=== PATIENT | female | born 1940 | race Caucasian/White ===

== ENCOUNTER 2017-06-19 10:11 | Inpatient (IN) | payer OTHER, MEDICARE ==
[~2017-06-19] VITALS: Ht 162.6 cm; Wt 81.1 kg
[2017-06-19] VITALS (9 sets, daily range): BP systolic 144–196; BP diastolic 59–92; PULSE 64–70; RESP 16–17; TEMP 97.8–97.9; O2SAT 95–100
[2017-06-19] MEDS ORDERED: ASPI-516 PO (10:28)
[2017-06-19] MEDS ORDERED: MORPHINE SULFATE 4 MG/ML INJ IV PUSH ONE (10:30)
[2017-06-19] MEDS ORDERED: ONDANSETRON HCL 4 MG/2 ML VIAL IV PUSH ONE (10:30)
[2017-06-19 10:58] LABS: AUTOMATED NEUTROPHIL # 9.2 TH/MM3 (1.8-7.7); BASOPHIL # 0.1 TH/MM3 (0-0.2); BASOPHIL % 0.7 % (0.0-2.0); EOSINOPHIL # 0.2 TH/MM3 (0-0.4); HEMATOCRIT 38.4 % (35.0-46.0); HEMOGLOBIN 12.8 GM/DL (11.6-15.3); LYMPH % 13.9 % (9.0-44.0); LYMPHOCYTE # 1.6 TH/MM3 (1.0-4.8); MEAN CELL VOLUME 87.8 FL (80.0-100.0); MEAN CORPUSCULAR HEMOGLOBIN 29.2 PG (27.0-34.0); MEAN CORPUSCULAR HGB CONC 33.2 % (32.0-36.0); MEAN PLATELET VOLUME 9.5 FL (7.0-11.0); MONO % 5.3 % (0.0-8.0); MONOCYTE # 0.6 TH/MM3 (0-0.9); NEUT % 78.1 % (16.0-70.0); PLATELET COUNT 174 TH/MM3 (150-450); RED BLOOD COUNT 4.38 MIL/MM3 (4.00-5.30); RED CELL DISTRIBUTION WIDTH 13.2 % (11.6-17.2); WHITE BLOOD COUNT 11.8 TH/MM3 (4.0-11.0)
[2017-06-19] MEDS ORDERED: TETANUS/DIPHTHERIA TOXOID ADULT 0.5 ML VIAL IM ONE (11:00)
[2017-06-19 11:09] LABS: ALBUMIN 3.4 GM/DL (3.4-5.0); ALT (GPT) 79 U/L (10-53); AST (GOT) 119 U/L (15-37); BICARBONATE 26.2 MEQ/L (21.0-32.0); BLOOD UREA NITROGEN 20 MG/DL (7-18); CALCIUM 8.9 MG/DL (8.5-10.1); CHLORIDE 109 MEQ/L (98-107); CREATININE 0.82 MG/DL (0.50-1.00); GLOMERULAR FILTRATION RATE 67 ML/MIN (>89); GLUCOSE,RANDOM 136 MG/DL (74-106); SODIUM (NA) 142 MEQ/L (136-145)
[2017-06-19 11:12] LABS: ALKALINE PHOSPHATASE 60 U/L (45-117); TOTAL BILIRUBIN ADULT 0.5 MG/DL (0.2-1.0)
[2017-06-19] MEDS ORDERED: FOSA70TA PO (11:14)
[2017-06-19] MEDS ORDERED: LOVA20TA PO (11:14)
[2017-06-19] MEDS ORDERED: CARV6.25 PO (11:14)
[2017-06-19] MEDS ORDERED: COZA100T PO (11:14)
[2017-06-19] MEDS ORDERED: MONT10TA2 PO (11:14)
[2017-06-19] MEDS ORDERED: IOHEXOL 350 MG/ML 10 ML VIAL (for RAD DIAG) IVCONTRAST ONE (11:39)
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
[2017-06-19 12:12] LABS: INTERNATIONAL NORMALIZED RATIO 1.1 RATIO; PROTHROMBIN TIME - PATIENT 11.3 SEC (9.8-11.6)
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
--- NOTE | 2017-06-19 13:07 | PD ---
Physical Exam Date Seen by Provider: Jun 19, 2017 Time Seen by Provider: 13:04 Narrative LACERATION LOCATION: Left scalp LENGTH: 5 cm NUMBER OF STITCHES/SHWETHA: 13 shwetha REPAIR: The area of the laceration was prepped with Betadine and sterilely draped. The laceration was infiltrated with 1% lidocaine with epi. The wound was copiously irrigated and explored without evidence of foreign body, tendon injury or neurovascular injury. The wound was closed using shwetha. This was a 1 layer repair. A sterile dressing was applied. The patient was advised to keep the dressing clean and dry. Patient tolerated the procedure well. LACERATION LOCATION: Left ear LENGTH: 5 small lacerations NUMBER OF STITCHES/SHWETHA: 7 stitches REPAIR: The area of the laceration was prepped with Betadine and sterilely draped. The laceration was infiltrated with 1% lidocaine. The wound was copiously irrigated and explored without evidence of foreign body, tendon injury or neurovascular injury. The wound was closed using 6-0 Ethilon. This was a 1 layer repair. A sterile dressing was applied. The patient was advised to keep the dressing clean and dry. Patient tolerated the procedure well. LACERATION LOCATION: Left upper cheek LENGTH: 2 cm NUMBER OF STITCHES/SHWETHA: 3 stitches REPAIR: The area of the laceration was prepped with Betadine and sterilely draped. The laceration was infiltrated with 1% lidocaine with epi. The wound was copiously irrigated and explored without evidence of foreign body, tendon injury or neurovascular injury. The wound was closed using 6-0 Ethilon. This was a 1 layer repair. A sterile dressing was applied. The patient was advised to keep the dressing clean and dry. Patient tolerated the procedure well. LACERATION LOCATION: Left lower cheek LENGTH: 4 cm NUMBER OF STITCHES/SHWETHA: 10 stitches REPAIR: The area of the laceration was prepped with Betadine and sterilely draped. The laceration was infiltrated with 1% lidocaine with epi. The wound was copiously irrigated and explored without evidence of foreign body, tendon injury or neurovascular injury. The wound was closed using 6-0 Ethilon. This was a 1 layer repair. A sterile dressing was applied. The patient was advised to keep the dressing clean and dry. Patient tolerated the procedure well. Data Data Last Documented VS Vital Signs Date Time Temp Pulse Resp B/P (MAP) Pulse Ox O2 Delivery O2 Flow Rate FiO2 06/19/17 11:12 69 16 188/81 (116) 97 Room Air 06/19/17 10:[address] Brain W/O Iv Contrast(Rout) (06/19/17 10:27) Ct Thorax/ Chest W Iv Contrast (06/19/17 10:27) Ct Cerv Spine W/O Contrast (06/19/17 10:27) Ct Thor Spine W/O Contrast (06/19/17 10:27) Complete Blood Count With Diff (06/19/17 10:27) Comprehensive Metabolic Panel (06/19/17 10:27) Prothrombin Time / Inr (Pt) (06/19/17 10:27) Act Partial Throm Time (Ptt) (06/19/17 10:27) Iv Access Insert/Monitor (06/19/17 10:27) Ecg Monitoring (06/19/17 10:27) Oximetry (06/19/17 10:27) Morphine Inj (Morphine Inj) (06/19/17 10:30) Ondansetron Inj (Zofran Inj) (06/19/17 10:30) Tetanus/Diphtheria Tox Adult (Tetanus/Di (06/19/17 11:00) Electrocardiogram (06/19/17 10:20) Iohexol 350 Inj (Omnipaque 350 Inj) (06/19/17 11:39) Type And Screen (06/19/17 12:32) Admit Order (Ed Use Only) (06/19/17 12:33) Labs Laboratory Tests Test 06/19/17 10:30 06/19/17 11:20 White Blood Count 11.8 TH/MM3 Red Blood Count 4.38 MIL/MM3 Hemoglobin 12.8 GM/DL Hematocrit 38.4 % Mean Corpuscular Volume 87.8 FL Mean Corpuscular Hemoglobin 29.2 PG Mean Corpuscular Hemoglobin Concent 33.2 % Red Cell Distribution Width 13.2 % Platelet Count 174 TH/MM3 Mean Platelet Volume 9.5 FL Neutrophils (%) (Auto) 78.1 % Lymphocytes (%) (Auto) 13.9 % Monocytes (%) (Auto) 5.3 % Eosinophils (%) (Auto) 2.0 % Basophils (%) (Auto) 0.7 % Neutrophils # (Auto) 9.2 TH/MM3 Lymphocytes # (Auto) 1.6 TH/MM3 Monocytes # (Auto) 0.6 TH/MM3 Eosinophils # (Auto) 0.2 TH/MM3 Basophils # (Auto) 0.1 TH/MM3 CBC Comment DIFF FINAL Differential Comment Blood Urea Nitrogen 20 MG/DL Creatinine 0.82 MG/DL Random Glucose 136 MG/DL Total Protein 7.0 GM/DL Albumin 3.4 GM/DL Calcium Level 8.9 MG/DL Alkaline Phosphatase 60 U/L Aspartate Amino Transf (AST/SGOT) 119 U/L Alanine Aminotransferase (ALT/SGPT) 79 U/L Total Bilirubin 0.5 MG/DL Sodium Level 142 MEQ/L Potassium Level 4.1 MEQ/L Chloride Level 109 MEQ/L Carbon Dioxide Level 26.2 MEQ/L Anion Gap 7 MEQ/L Estimat Glomerular Filtration Rate 67 ML/MIN Prothrombin Time 11.3 SEC Prothromb Time International Ratio 1.1 RATIO Activated Partial Thromboplast Time 23.6 SEC MDM Supervised Visit with KAROL: Yes Diagnosis Primary Impression: Acute subdural and subarachnoid hemorrhages Additional Impressions: Right clavicle fracture Left-sided facial and temporal scalp lacerations Multiple left-sided rib fractures Multiple right-sided rib fractures. Small right sided pneumothorax T4 and T6 compression fracture Sarah Childers Jun 19, 2017 13:07
[2017-06-19] MEDS ORDERED: MISCELLANEOUS NURSING INFORMATION XX SCH ×2 (13:15→13:30)
[2017-06-19] MEDS ORDERED: BISACODYL 10 MG SUPP RECTAL PRN (13:15)
[2017-06-19] MEDS ORDERED: CHLORHEXIDINE GLUCONATE 2 % 1 PACK (2 CLOTHS) TOP PRN ×2 (13:15→13:30)
[2017-06-19] MEDS ORDERED: SENNOSIDES 8.6 MG TAB PO PRN (13:15)
[2017-06-19] MEDS ORDERED: SODIUM CHLORIDE 0.9% FLUSH 10 ML FLUSH IV FLUSH PRN ×3 (13:15→14:45)
[2017-06-19] MEDS ORDERED: LACTULOSE SYRUP 20 GM/30 ML CUP PO PRN (13:15)
[2017-06-19] MEDS ORDERED: ONDANSETRON HCL 4 MG/2 ML VIAL IV PUSH PRN (13:30)
[2017-06-19] MEDS ORDERED: ENALAPRILAT 1.25 MG/ML VIAL IV PUSH PRN (13:30)
[2017-06-19] MEDS ORDERED: MAGNESIUM HYDROXIDE SUSP 30 ML CUP PO PRN (13:30)
[2017-06-19] MEDS ORDERED: MORPHINE SULFATE 4 MG/ML INJ IV PUSH PRN (13:30)
[2017-06-19] MEDS: METHOCARBAMOL 500 MG TAB PO SCH ×2 (13:53→21:12)
[2017-06-19] MEDS ORDERED: SODIUM CHLOR 0.9% 1000 ML INJ 1,000 ML IV SCH (14:00)
[2017-06-19] MEDS ORDERED: PANTOPRAZOLE SODIUM 40 MG VIAL IVP SCH (14:00)
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
[2017-06-19] MEDS ORDERED: NALOXONE HCL 0.4 MG/ML AMP IV PUSH PRN (14:45)
[2017-06-19] MEDS ORDERED: oxyCODONE/ACETAMINOPHEN 5 MG/325 MG TAB PO PRN (14:45)
[2017-06-19] MEDS ORDERED: MORPHINE SULFATE 2 MG/ML SYRINGE IV PUSH PRN (14:45)
[2017-06-19] MEDS ORDERED: Post-op Orders (for Pharmacy) XX ONE (14:45)
[2017-06-19] MEDS: SODIUM CHLOR 0.9% 1000 ML INJ 1,000 ML IV SCH (15:00)
[2017-06-19] MEDS ORDERED: ACETAMINOPHEN 1000 MG/100 ML 100 ML IV SCH (15:00)
[2017-06-19] MEDS: MAGNESIUM HYDROXIDE SUSP 30 ML CUP PO SCH (16:40)
[2017-06-19] MEDS: PANTOPRAZOLE SOD 40 MG DELAYED RELEASE TAB PO SCH ×2 (16:40→16:53)
[2017-06-19] MEDS: levETIRAcetam INJ 500 MG in SODIUM CHLORIDE 0.9% INJ 100 ML IV SCH ×2 (16:40→21:12)
[2017-06-19] MEDS: ACETAMINOPHEN 1000 MG/100 ML 100 ML IV SCH ×2 (16:43→21:12)
[2017-06-19] MEDS: MORPHINE SULFATE 2 MG/ML SYRINGE IV PUSH PRN (16:45)
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
[2017-06-19] MEDS: LIDOCAINE HCL 5% PATCH T-DERMAL SCH (16:53)
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
--- NOTE | 2017-06-19 19:33 | EKG ---
Date Performed: 06/19/2017 Time Performed: 10:30:55 PTAGE: 77 years EKG: Sinus rhythm POSSIBLE RIGHT VENTRICULAR CONDUCTION DELAY BORDERLINE ECG NO PREVIOUS TRACING DOCTOR: Will Rosenberg Interpretating Date/Time 06/19/2017 19:30:22
[2017-06-19] MEDS: BACITRACIN TOP OINT 15 GM TUBE TOP SCH (21:00)
[2017-06-19] MEDS: CARVEDILOL 6.25 MG TAB PO SCH (21:12)
[2017-06-19] MEDS: PRAVASTATIN SOD 20 MG TAB PO SCH (21:12)
[2017-06-19] MEDS: DOCUSATE SODIUM 50 MG/SENNA 8.6 MG TAB PO SCH (21:12)
[2017-06-19] MEDS: SODIUM CHLORIDE 0.9% FLUSH 10 ML FLUSH IV FLUSH SCH (21:12)
[2017-06-20] VITALS (14 sets, daily range): BP systolic 101–153; BP diastolic 46–104; PULSE 58–75; RESP 11–18; TEMP 97.2–98.6; O2SAT 92–100
[2017-06-20] MEDS: MAGNESIUM HYDROXIDE SUSP 30 ML CUP PO SCH ×2 (02:37→14:27)
[2017-06-20] MEDS ORDERED: CHLORHEXIDINE GLUCONATE 2 % 1 PACK (2 CLOTHS) TOP SCH (04:00)
[2017-06-20] MEDS: CHLORHEXIDINE GLUCONATE 2 % 1 PACK (2 CLOTHS) TOP SCH (04:00)
[2017-06-20] MEDS: ACETAMINOPHEN 1000 MG/100 ML 100 ML IV SCH ×2 (04:15→10:00)
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
[2017-06-20] MEDS: METHOCARBAMOL 500 MG TAB PO SCH ×3 (05:33→21:13)
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
[2017-06-20 07:23] LABS: AUTOMATED NEUTROPHIL # 7.2 TH/MM3 (1.8-7.7); BASOPHIL # 0.1 TH/MM3 (0-0.2); BASOPHIL % 0.5 % (0.0-2.0); EOSINOPHIL % 0.1 % (0.0-4.0); HEMATOCRIT 31.5 % (35.0-46.0); HEMOGLOBIN 10.5 GM/DL (11.6-15.3); LYMPH % 15.5 % (9.0-44.0); LYMPHOCYTE # 1.6 TH/MM3 (1.0-4.8); MEAN CELL VOLUME 89.6 FL (80.0-100.0); MEAN CORPUSCULAR HEMOGLOBIN 29.9 PG (27.0-34.0); MEAN CORPUSCULAR HGB CONC 33.4 % (32.0-36.0); MEAN PLATELET VOLUME 9.2 FL (7.0-11.0); MONO % 11.3 % (0.0-8.0); MONOCYTE # 1.1 TH/MM3 (0-0.9); NEUT % 72.6 % (16.0-70.0); PLATELET COUNT 131 TH/MM3 (150-450); RED BLOOD COUNT 3.51 MIL/MM3 (4.00-5.30); RED CELL DISTRIBUTION WIDTH 13.3 % (11.6-17.2)
[2017-06-20 07:52] LABS: ALKALINE PHOSPHATASE 55 U/L (45-117); ALT (GPT) 82 U/L (10-53); AST (GOT) 118 U/L (15-37); BICARBONATE 25.4 MEQ/L (21.0-32.0); BLOOD UREA NITROGEN 33 MG/DL (7-18); CALCIUM 8.2 MG/DL (8.5-10.1); CHLORIDE 108 MEQ/L (98-107); CREATININE 1.16 MG/DL (0.50-1.00); GLOMERULAR FILTRATION RATE 45 ML/MIN (>89); GLUCOSE,RANDOM 137 MG/DL (74-106); SODIUM (NA) 142 MEQ/L (136-145); TOTAL BILIRUBIN ADULT 0.5 MG/DL (0.2-1.0); TOTAL PROTEIN 6.2 GM/DL (6.4-8.2)
[2017-06-20] MEDS: CARVEDILOL 6.25 MG TAB PO SCH ×2 (08:13→21:13)
[2017-06-20] MEDS: LOSARTAN 50 MG TAB PO SCH (08:13)
[2017-06-20] MEDS: levETIRAcetam INJ 500 MG in SODIUM CHLORIDE 0.9% INJ 100 ML IV SCH ×2 (08:16→21:13)
[2017-06-20] MEDS: DOCUSATE SODIUM 50 MG/SENNA 8.6 MG TAB PO SCH ×2 (08:16→21:13)
[2017-06-20] MEDS: SODIUM CHLORIDE 0.9% FLUSH 10 ML FLUSH IV FLUSH SCH ×2 (08:16→21:14)
[2017-06-20] MEDS: REMOVE OLD LIDOCAINE PATCH T-DERMAL SCH (08:17)
[2017-06-20] MEDS: LIDOCAINE HCL 5% PATCH T-DERMAL SCH (08:17)
[2017-06-20] MEDS: ONDANSETRON HCL 4 MG/2 ML VIAL IV PUSH PRN ×2 (09:36→20:02)
[2017-06-20] MEDS: BACITRACIN TOP OINT 15 GM TUBE TOP SCH ×2 (10:30→21:00)
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
[2017-06-20] MEDS: SODIUM CHLOR 0.9% 1000 ML INJ 1,000 ML IV SCH ×2 (12:00→23:07)
--- NOTE | 2017-06-20 12:00 | RADRPT ---
EXAM DATE/TIME: 06/20/2017 11:35 [facility] COMPARISON: CT BRAIN W/O CONTRAST, June 19, 2017, 11:21. INDICATIONS : Abnormal prior CT brain. Evaluate status of subdural hemorrhage. RADIATION DOSE: 33.97 CTDIvol (mGy) MEDICAL HISTORY : Hypertension. SURGICAL HISTORY : Hysterectomy. Cholecystectomy. ENCOUNTER: Subsequent ACUITY: 1 day PAIN SCALE: 5/10 LOCATION: Bilateral head TECHNIQUE: Multiple contiguous axial images were obtained of the head. Using automated exposure control and adj ustment of the mA and/or kV according to patient size, radiation dose was kept as low as reasonably a chievable to obtain optimal diagnostic quality images. DICOM format image data is available electro nically for review and comparison. FINDINGS: The subdural blood persists becoming less dense. This blood is layering posteriorly on the right and measures 8 mm. Cortical parenchymal contusions are again seen over the right hemisphere. Minimal s ubarachnoid blood persists. Left hemisphere is unremarkable. The posterior fossa appears normal. CONCLUSION: Involving subdural, subarachnoid and parenchymal blood without significant mass effec t. MRI could be used to exclude LAMONTE. Aydin Doe MD FACR on June 20, 2017 at 11:57 Board Certified Radiologist. This report was verified electronically.
--- NOTE | 2017-06-20 12:17 | RADRPT ---
EXAM DATE/TIME: 06/20/2017 11:42 [facility] COMPARISON: No previous studies available for comparison. INDICATIONS : Fracture. MEDICAL HISTORY : Hypertension. SURGICAL HISTORY : CABG Hysterectomy. Appendectomy. Cholecystectomy. ENCOUNTER: Initial ACUITY: 1 day PAIN SCORE: 5/10 LOCATION: Paraspinal TECHNIQUE: Multiplanar multisequence MRI of the thoracic spine was performed. FINDINGS: VERTEBRA: Normal vertebral body height. Marrow signal alteration in T4 and T6 consistent with acute compressio n. Small right-sided pleural effusion. ALIGNMENT: Normal. CORD: Normal position and configuration. The marrow signal in T4 and T6 is abnormal consistent with the bland subacute compression fracture. . These are causing very minimal impingement on the anterior thecal space, less impressive than seen by CT. There is mild interspace ridging at T7-T8 and T8-T9 causing minimal impingement on anterior thecal sp raheem. There is no cord compression. There is the small right pleural effusion. CONCLUSION: Fractures of T4 and T6 without significant cord impingement. Mild degenerative changes lower thoracic spine Trace pleural effusion on the right. Aydin Doe MD FACR on June 20, 2017 at 12:11 Board Certified Radiologist. This report was verified electronically.
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
[2017-06-20] MEDS: MORPHINE SULFATE 2 MG/ML SYRINGE IV PUSH PRN ×3 (15:28→22:51)
--- NOTE | 2017-06-20 16:48 | EKG ---
Date Performed: 06/19/2017 Time Performed: 15:21:54 PTAGE: 77 years EKG: Sinus bradycardia Septal ST changes are nonspecific Since the previous tracing, no signific ant change noted Borderline ECG PREVIOUS TRACING : 06/19/2017 10.30 DOCTOR: Georgiana Khan Interpretating Date/Time 06/20/2017 16:46:58
[2017-06-20] MEDS ORDERED: fentaNYL 50 MCG/HR PATCH T-DERMAL SCH (19:00)
[2017-06-20] MEDS ORDERED: REMOVE OLD PATCH T-DERMAL SCH (19:00)
[2017-06-20] MEDS: PRAVASTATIN SOD 20 MG TAB PO SCH (21:13)
[2017-06-20] MEDS: oxyCODONE/ACETAMINOPHEN 5 MG/325 MG TAB PO PRN (21:14)
[2017-06-21] VITALS (10 sets, daily range): BP systolic 111–164; BP diastolic 58–70; PULSE 63–90; RESP 15–21; TEMP 97.4–98.8; O2SAT 94–100
[2017-06-21] MEDS: MORPHINE SULFATE 4 MG/ML INJ IV PUSH PRN ×4 (00:56→17:59)
[2017-06-21] MEDS: MAGNESIUM HYDROXIDE SUSP 30 ML CUP PO SCH ×2 (02:13→14:32)
[2017-06-21] MEDS: CHLORHEXIDINE GLUCONATE 2 % 1 PACK (2 CLOTHS) TOP SCH (04:00)
[2017-06-21] MEDS: oxyCODONE/ACETAMINOPHEN 5 MG/325 MG TAB PO PRN (04:06)
[2017-06-21 04:37] LABS: AUTOMATED NEUTROPHIL # 6.8 TH/MM3 (1.8-7.7); BASOPHIL # 0.1 TH/MM3 (0-0.2); BASOPHIL % 0.5 % (0.0-2.0); EOSINOPHIL # 0.1 TH/MM3 (0-0.4); EOSINOPHIL % 0.9 % (0.0-4.0); HEMATOCRIT 27.6 % (35.0-46.0); HEMOGLOBIN 9.4 GM/DL (11.6-15.3); LYMPH % 17.7 % (9.0-44.0); LYMPHOCYTE # 1.7 TH/MM3 (1.0-4.8); MEAN CELL VOLUME 89.6 FL (80.0-100.0); MEAN CORPUSCULAR HEMOGLOBIN 30.4 PG (27.0-34.0); MEAN CORPUSCULAR HGB CONC 33.9 % (32.0-36.0); MEAN PLATELET VOLUME 9.2 FL (7.0-11.0); MONO % 9.4 % (0.0-8.0); MONOCYTE # 0.9 TH/MM3 (0-0.9); NEUT % 71.5 % (16.0-70.0); PLATELET COUNT 112 TH/MM3 (150-450); RED BLOOD COUNT 3.08 MIL/MM3 (4.00-5.30); RED CELL DISTRIBUTION WIDTH 13.5 % (11.6-17.2); WHITE BLOOD COUNT 9.6 TH/MM3 (4.0-11.0)
[2017-06-21 04:59] LABS: ALBUMIN 2.9 GM/DL (3.4-5.0); AST (GOT) 99 U/L (15-37); BICARBONATE 27.3 MEQ/L (21.0-32.0); BLOOD UREA NITROGEN 34 MG/DL (7-18); CALCIUM 7.6 MG/DL (8.5-10.1); CHLORIDE 112 MEQ/L (98-107); CREATININE 0.93 MG/DL (0.50-1.00); GLOMERULAR FILTRATION RATE 58 ML/MIN (>89); GLUCOSE,RANDOM 134 MG/DL (74-106); SODIUM (NA) 143 MEQ/L (136-145)
[2017-06-21 05:00] LABS: ALT (GPT) 80 U/L (10-53)
[2017-06-21 05:03] LABS: ALKALINE PHOSPHATASE 56 U/L (45-117); TOTAL BILIRUBIN ADULT 0.4 MG/DL (0.2-1.0); TOTAL PROTEIN 6.1 GM/DL (6.4-8.2)
[2017-06-21] MEDS: METHOCARBAMOL 500 MG TAB PO SCH ×3 (05:12→22:00)
--- NOTE | 2017-06-21 05:21 | RADRPT ---
EXAM DATE/TIME: 06/21/2017 04:43 [facility] COMPARISON: CHEST SINGLE AP, June 20, 2017, 3:53. INDICATIONS : Shortness of breath. MEDICAL HISTORY : Hypertension. SURGICAL HISTORY : CABG Hysterectomy. Appendectomy. Cholecystectomy ENCOUNTER: Subsequent ACUITY: 3 days PAIN SCORE: Non-responsive. LOCATION: Bilateral chest FINDINGS: The cardiac silhouette is enlarged in transverse diameter. Median sternotomy wires are present. The l ungs are hypoinflated. There is prominence of the central pulmonary vasculature with indistinct vascu lar margins compatible with vascular congestion but no evidence of overt failure. CONCLUSION: 1. Cardiomegaly and findings of vascular congestion without overt failure. This is new when compared with the prior exam. Rich Mclaughlin MD on June 21, 2017 at 5:19 Board Certified Radiologist. This report was verified electronically.
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
[2017-06-21] MEDS: CARVEDILOL 6.25 MG TAB PO SCH ×2 (09:56→21:00)
[2017-06-21] MEDS: DOCUSATE SODIUM 50 MG/SENNA 8.6 MG TAB PO SCH ×2 (09:56→21:00)
[2017-06-21] MEDS: LOSARTAN 50 MG TAB PO SCH (09:56)
[2017-06-21] MEDS: levETIRAcetam INJ 500 MG in SODIUM CHLORIDE 0.9% INJ 100 ML IV SCH ×2 (09:56→23:01)
[2017-06-21] MEDS: BACITRACIN TOP OINT 15 GM TUBE TOP SCH ×2 (09:57→23:02)
[2017-06-21] MEDS: REMOVE OLD LIDOCAINE PATCH T-DERMAL SCH (09:57)
[2017-06-21] MEDS: LIDOCAINE HCL 5% PATCH T-DERMAL SCH (09:57)
[2017-06-21] MEDS: SODIUM CHLOR 0.9% 1000 ML INJ 1,000 ML IV SCH (09:58)
[2017-06-21] MEDS: SODIUM CHLORIDE 0.9% FLUSH 10 ML FLUSH IV FLUSH SCH ×2 (09:58→23:01)
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
[2017-06-21] MEDS: PANTOPRAZOLE SOD 40 MG DELAYED RELEASE TAB PO SCH (14:32)
[2017-06-21] MEDS: PRAVASTATIN SOD 20 MG TAB PO SCH (21:00)
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
--- NOTE | 2017-06-21 21:36 | RADRPT ---
EXAM DATE/TIME: 06/21/2017 20:53 [facility] COMPARISON: CHEST SINGLE AP, June 21, 2017, 4:43. INDICATIONS : Short of Breath MEDICAL HISTORY : Hypertension. SURGICAL HISTORY : CABG Hysterectomy. Appendectomy. Cholecystectomy ENCOUNTER: Subsequent ACUITY: 3 days PAIN SCORE: Non-responsive. LOCATION: chest FINDINGS: The patient is status post sternotomy. Heart size is normal. There is increased density at the lung b ases bilaterally being more prominent on the right. CONCLUSION: Bibasilar atelectasis, consolidation and/or effusion being more prominent on the right. Russell Jones MD on June 21, 2017 at 21:33 Board Certified Radiologist. This report was verified electronically.
[2017-06-22] VITALS (12 sets, daily range): BP systolic 107–201; BP diastolic 52–81; PULSE 65–83; RESP 12–16; TEMP 97.5–98.8; O2SAT 95–100
[2017-06-22] MEDS: SODIUM CHLOR 0.9% 1000 ML INJ 1,000 ML IV SCH ×3 (00:45→23:29)
[2017-06-22] MEDS: MAGNESIUM HYDROXIDE SUSP 30 ML CUP PO SCH ×2 (03:00→15:26)
[2017-06-22] MEDS: CHLORHEXIDINE GLUCONATE 2 % 1 PACK (2 CLOTHS) TOP SCH (04:00)
--- NOTE | 2017-06-22 05:43 | RADRPT ---
EXAM DATE/TIME: 06/22/2017 04:56 [facility] COMPARISON: CHEST SINGLE AP, June 21, 2017, 20:53. INDICATIONS : Short of breath. MEDICAL HISTORY : Hypertension. SURGICAL HISTORY : CABG Hysterectomy. Appendectomy. Cholecystectomy ENCOUNTER: Subsequent ACUITY: 4 - 6 days PAIN SCORE: 0/10 LOCATION: Bilateral chest FINDINGS: Mild consolidation and small effusion again seen on the right. No pneumothorax demonstrated. Heart si ze stable, within normal limits. Patient has had previous median sternotomy. CONCLUSION: No significant change basilar consolidation and small effusion on the right. Russell Johnson MD on June 22, 2017 at 5:41 Board Certified Radiologist. This report was verified electronically.
[2017-06-22] MEDS: METHOCARBAMOL 500 MG TAB PO SCH ×3 (06:00→23:32)
[2017-06-22] MEDS: ENALAPRILAT 1.25 MG/ML VIAL IV PUSH PRN ×2 (06:20→15:26)
[2017-06-22 07:36] LABS: BASOPHIL % 0.5 % (0.0-2.0); EOSINOPHIL % 0.3 % (0.0-4.0); HEMOGLOBIN 8.8 GM/DL (11.6-15.3); LYMPH % 11.4 % (9.0-44.0); LYMPHOCYTE # 1.1 TH/MM3 (1.0-4.8); MEAN CELL VOLUME 89.9 FL (80.0-100.0); MEAN CORPUSCULAR HEMOGLOBIN 30.5 PG (27.0-34.0); MEAN CORPUSCULAR HGB CONC 33.9 % (32.0-36.0); MEAN PLATELET VOLUME 9.1 FL (7.0-11.0); MONO % 7.3 % (0.0-8.0); MONOCYTE # 0.7 TH/MM3 (0-0.9); NEUT % 80.5 % (16.0-70.0); PLATELET COUNT 124 TH/MM3 (150-450); RED BLOOD COUNT 2.89 MIL/MM3 (4.00-5.30); RED CELL DISTRIBUTION WIDTH 13.7 % (11.6-17.2); WHITE BLOOD COUNT 9.9 TH/MM3 (4.0-11.0)
[2017-06-22 07:55] LABS: ALBUMIN 2.7 GM/DL (3.4-5.0); AST (GOT) 69 U/L (15-37); BLOOD UREA NITROGEN 32 MG/DL (7-18); CALCIUM 7.6 MG/DL (8.5-10.1); CHLORIDE 116 MEQ/L (98-107); CREATININE 0.69 MG/DL (0.50-1.00); GLOMERULAR FILTRATION RATE 82 ML/MIN (>89); GLUCOSE,RANDOM 104 MG/DL (74-106); SODIUM (NA) 145 MEQ/L (136-145)
[2017-06-22 07:56] LABS: ALT (GPT) 68 U/L (10-53)
[2017-06-22 07:58] LABS: ALKALINE PHOSPHATASE 71 U/L (45-117); TOTAL BILIRUBIN ADULT 0.4 MG/DL (0.2-1.0); TOTAL PROTEIN 6.2 GM/DL (6.4-8.2)
[2017-06-22] MEDS: BACITRACIN TOP OINT 15 GM TUBE TOP SCH ×2 (09:00→23:43)
[2017-06-22] MEDS: REMOVE OLD LIDOCAINE PATCH T-DERMAL SCH (09:00)
[2017-06-22] MEDS: SODIUM CHLORIDE 0.9% FLUSH 10 ML FLUSH IV FLUSH SCH ×2 (09:00→21:00)
[2017-06-22] MEDS: DOCUSATE SODIUM 50 MG/SENNA 8.6 MG TAB PO SCH ×2 (10:20→23:32)
[2017-06-22] MEDS: LOSARTAN 50 MG TAB PO SCH (10:20)
[2017-06-22] MEDS: oxyCODONE/ACETAMINOPHEN 5 MG/325 MG TAB PO PRN ×2 (10:20→15:28)
[2017-06-22] MEDS: CARVEDILOL 6.25 MG TAB PO SCH ×2 (10:20→23:32)
[2017-06-22] MEDS: LIDOCAINE HCL 5% PATCH T-DERMAL SCH (10:21)
[2017-06-22] MEDS: levETIRAcetam INJ 500 MG in SODIUM CHLORIDE 0.9% INJ 100 ML IV SCH ×2 (10:21→23:33)
[2017-06-22] MEDS: PANTOPRAZOLE SOD 40 MG DELAYED RELEASE TAB PO SCH (15:26)
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
[2017-06-22] MEDS ORDERED: cloNIDine HCL 0.2 MG TAB PO ONE (16:30)
[2017-06-22] MEDS: PRAVASTATIN SOD 20 MG TAB PO SCH (23:32)
[2017-06-23] VITALS (7 sets, daily range): BP systolic 112–213; BP diastolic 53–96; PULSE 58–75; RESP 16–21; TEMP 96.4–99.1; O2SAT 100
[2017-06-23] MEDS: MAGNESIUM HYDROXIDE SUSP 30 ML CUP PO SCH ×2 (02:56→14:19)
[2017-06-23] MEDS: oxyCODONE/ACETAMINOPHEN 5 MG/325 MG TAB PO PRN ×2 (02:57→08:59)
[2017-06-23] MEDS: CHLORHEXIDINE GLUCONATE 2 % 1 PACK (2 CLOTHS) TOP SCH (04:00)
[2017-06-23 05:17] LABS: AUTOMATED NEUTROPHIL # 6.1 TH/MM3 (1.8-7.7); BASOPHIL % 0.4 % (0.0-2.0); EOSINOPHIL % 0.6 % (0.0-4.0); HEMATOCRIT 24.1 % (35.0-46.0); HEMOGLOBIN 8.1 GM/DL (11.6-15.3); LYMPH % 13.5 % (9.0-44.0); LYMPHOCYTE # 1.1 TH/MM3 (1.0-4.8); MEAN CELL VOLUME 90.1 FL (80.0-100.0); MEAN CORPUSCULAR HEMOGLOBIN 30.2 PG (27.0-34.0); MEAN CORPUSCULAR HGB CONC 33.5 % (32.0-36.0); MONO % 7.6 % (0.0-8.0); MONOCYTE # 0.6 TH/MM3 (0-0.9); NEUT % 77.9 % (16.0-70.0); PLATELET COUNT 128 TH/MM3 (150-450); RED BLOOD COUNT 2.68 MIL/MM3 (4.00-5.30); RED CELL DISTRIBUTION WIDTH 13.2 % (11.6-17.2); WHITE BLOOD COUNT 7.8 TH/MM3 (4.0-11.0)
--- NOTE | 2017-06-23 05:29 | RADRPT ---
EXAM DATE/TIME: 06/23/2017 03:32 [facility] COMPARISON: CHEST SINGLE AP, June 22, 2017, 4:56. INDICATIONS : Short of breath. MEDICAL HISTORY : Hypertension. SURGICAL HISTORY : CABG Hysterectomy. Appendectomy. Cholecystectomy ENCOUNTER: Subsequent ACUITY: 4 - 6 days PAIN SCORE: Non-responsive. LOCATION: Bilateral chest FINDINGS: Bibasilar consolidation and small effusions again noted, slightly worse in the interim. No pneumothor ax. Heart size stable, upper limits of normal. Patient has had previous median sternotomy. CONCLUSION: Modest worsening bibasilar consolidation and small effusions. Russell Johnson MD on June 23, 2017 at 5:27 Board Certified Radiologist. This report was verified electronically.
[2017-06-23 05:41] LABS: ALBUMIN 2.3 GM/DL (3.4-5.0); BICARBONATE 23.5 MEQ/L (21.0-32.0); CALCIUM 7.3 MG/DL (8.5-10.1); CALCIUM-PROTEIN CORRECTED 8.1 MG/DL (8.5-10.1); CREATININE 0.56 MG/DL (0.50-1.00); TOTAL BILIRUBIN ADULT 0.5 MG/DL (0.2-1.0); TOTAL PROTEIN 5.7 GM/DL (6.4-8.2)
[2017-06-23] MEDS: METHOCARBAMOL 500 MG TAB PO SCH ×3 (06:50→22:34)
[2017-06-23] MEDS: cloNIDine HCL 0.1 MG TAB PO PRN ×2 (08:50→19:29)
[2017-06-23] MEDS: CARVEDILOL 6.25 MG TAB PO SCH ×2 (08:50→19:29)
[2017-06-23] MEDS: DOCUSATE SODIUM 50 MG/SENNA 8.6 MG TAB PO SCH ×2 (08:50→19:29)
[2017-06-23] MEDS: LOSARTAN 50 MG TAB PO SCH (08:50)
[2017-06-23] MEDS: LIDOCAINE HCL 5% PATCH T-DERMAL SCH (08:51)
[2017-06-23] MEDS: levETIRAcetam INJ 500 MG in SODIUM CHLORIDE 0.9% INJ 100 ML IV SCH ×2 (08:51→19:29)
[2017-06-23] MEDS: SODIUM CHLORIDE 0.9% FLUSH 10 ML FLUSH IV FLUSH SCH ×2 (09:00→19:29)
[2017-06-23] MEDS: REMOVE OLD LIDOCAINE PATCH T-DERMAL SCH (09:00)
[2017-06-23] MEDS: LACTULOSE SYRUP 20 GM/30 ML CUP PO SCH (09:00)
--- NOTE | 2017-06-23 11:00 | RADRPT ---
EXAM DATE/TIME: 06/23/2017 10:30 [facility] COMPARISON: CHEST SINGLE AP, June 23, 2017, 3:32. INDICATIONS : Short of breath. MEDICAL HISTORY : Hypertension. SURGICAL HISTORY : CABG. Hysterectomy. Appendectomy. Cholecystectomy ENCOUNTER: Subsequent ACUITY: 4 - 6 days PAIN SCORE: Non-responsive. LOCATION: Bilateral chest FINDINGS: A single view of the chest demonstrates cardiomegaly with bibasilar densities and small pleural effus ions, greater on the right. Increase in pulmonary vascularity. Osseous structures are intact. CONCLUSION: Cardiomegaly with bilateral pleural effusions and bibasilar densities, likely atelectasis. Santiago Kiser MD on June 23, 2017 at 10:52 Board Certified Radiologist. This report was verified electronically.
[2017-06-23] MEDS: ACETAMINOPHEN 1000 MG/100 ML 100 ML IV SCH ×3 (12:28→23:05)
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
[2017-06-23] MEDS: LACTATED RINGER'S 1000 ML INJ 1,000 ML IV SCH (14:05)
[2017-06-23] MEDS: PANTOPRAZOLE SOD 40 MG DELAYED RELEASE TAB PO SCH (14:17)
[2017-06-23] MEDS: ENALAPRILAT 2.5 MG/2 ML VIAL IV PUSH PRN ×2 (14:18→23:05)
[2017-06-23] MEDS: BACITRACIN TOP OINT 15 GM TUBE TOP SCH ×2 (17:04→19:29)
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
[2017-06-23] MEDS: PRAVASTATIN SOD 20 MG TAB PO SCH (19:29)
[2017-06-24] VITALS (11 sets, daily range): BP systolic 137–165; BP diastolic 63–99; PULSE 56–74; RESP 12–20; TEMP 97.2–98.8; O2SAT 90–100
[2017-06-24] MEDS: MORPHINE SULFATE 2 MG/ML SYRINGE IV PRN ×3 (02:58→15:10)
[2017-06-24] MEDS: MAGNESIUM HYDROXIDE SUSP 30 ML CUP PO SCH ×2 (03:00→15:00)
[2017-06-24] MEDS: CHLORHEXIDINE GLUCONATE 2 % 1 PACK (2 CLOTHS) TOP SCH (04:00)
[2017-06-24 05:23] LABS: AUTOMATED NEUTROPHIL # 4.8 TH/MM3 (1.8-7.7); BASOPHIL # 0.1 TH/MM3 (0-0.2); BASOPHIL % 0.8 % (0.0-2.0); EOSINOPHIL # 0.1 TH/MM3 (0-0.4); EOSINOPHIL % 1.3 % (0.0-4.0); HEMATOCRIT 25.6 % (35.0-46.0); HEMOGLOBIN 8.7 GM/DL (11.6-15.3); LYMPH % 18.9 % (9.0-44.0); LYMPHOCYTE # 1.3 TH/MM3 (1.0-4.8); MEAN CORPUSCULAR HEMOGLOBIN 30.3 PG (27.0-34.0); MEAN CORPUSCULAR HGB CONC 34.1 % (32.0-36.0); MEAN PLATELET VOLUME 8.9 FL (7.0-11.0); MONO % 8.4 % (0.0-8.0); MONOCYTE # 0.6 TH/MM3 (0-0.9); NEUT % 70.6 % (16.0-70.0); PLATELET COUNT 158 TH/MM3 (150-450); RED BLOOD COUNT 2.88 MIL/MM3 (4.00-5.30); RED CELL DISTRIBUTION WIDTH 13.3 % (11.6-17.2); WHITE BLOOD COUNT 6.8 TH/MM3 (4.0-11.0)
[2017-06-24 05:57] LABS: ALBUMIN 2.6 GM/DL (3.4-5.0); AST (GOT) 40 U/L (15-37); BICARBONATE 25.2 MEQ/L (21.0-32.0); BLOOD UREA NITROGEN 27 MG/DL (7-18); CALCIUM 7.6 MG/DL (8.5-10.1); CHLORIDE 115 MEQ/L (98-107); CREATININE 0.54 MG/DL (0.50-1.00); GLOMERULAR FILTRATION RATE 109 ML/MIN (>89); GLUCOSE,RANDOM 115 MG/DL (74-106); SODIUM (NA) 146 MEQ/L (136-145)
[2017-06-24 05:59] LABS: ALT (GPT) 56 U/L (10-53)
[2017-06-24 06:02] LABS: ALKALINE PHOSPHATASE 79 U/L (45-117); TOTAL BILIRUBIN ADULT 0.7 MG/DL (0.2-1.0); TOTAL PROTEIN 6.3 GM/DL (6.4-8.2)
--- NOTE | 2017-06-24 06:08 | RADRPT ---
EXAM DATE/TIME: 06/24/2017 04:08 [facility] COMPARISON: CHEST SINGLE AP, June 23, 2017, 10:30. INDICATIONS : Shortness of breath. MEDICAL HISTORY : Hypertension. SURGICAL HISTORY : CABG. ENCOUNTER: Subsequent ACUITY: 4 - 6 days PAIN SCORE: Non-responsive. LOCATION: Bilateral chest FINDINGS: Basilar consolidation and small moderate pleural effusions on both sides modestly worse in the interi m. No pneumothorax. Heart size stable, within normal limits. Patient has had previous median sternotomy. CONCLUSION: Worsening bibasilar consolidation and effusions. Russell Johnson MD on June 24, 2017 at 6:06 Board Certified Radiologist. This report was verified electronically.
[2017-06-24] MEDS: ACETAMINOPHEN 1000 MG/100 ML 100 ML IV SCH ×5 (06:22→23:30)
[2017-06-24] MEDS: cloNIDine HCL 0.1 MG TAB PO PRN (06:22)
[2017-06-24] MEDS: METHOCARBAMOL 500 MG TAB PO SCH ×3 (06:22→22:00)
[2017-06-24] MEDS: LACTATED RINGER'S 1000 ML INJ 1,000 ML IV SCH (06:23)
[2017-06-24] MEDS: LACTULOSE SYRUP 20 GM/30 ML CUP PO SCH (08:53)
[2017-06-24] MEDS: DOCUSATE SODIUM 50 MG/SENNA 8.6 MG TAB PO SCH ×2 (08:53→20:38)
[2017-06-24] MEDS: LIDOCAINE HCL 5% PATCH T-DERMAL SCH (08:53)
[2017-06-24] MEDS: LOSARTAN 50 MG TAB PO SCH (08:53)
[2017-06-24] MEDS: SODIUM CHLORIDE 0.9% FLUSH 10 ML FLUSH IV FLUSH SCH ×2 (08:53→20:38)
[2017-06-24] MEDS: CARVEDILOL 6.25 MG TAB PO SCH ×2 (08:53→20:38)
[2017-06-24] MEDS: REMOVE OLD LIDOCAINE PATCH T-DERMAL SCH (09:00)
[2017-06-24] MEDS: levETIRAcetam INJ 500 MG in SODIUM CHLORIDE 0.9% INJ 100 ML IV SCH ×2 (09:00→20:37)
[2017-06-24] MEDS: ENALAPRILAT 2.5 MG/2 ML VIAL IV PUSH PRN (09:00)
[2017-06-24] MEDS: niCARdipine INJ 25 MG in SODIUM CHLOR 0.9% 250 ML INJ 240 ML IV PRN ×2 (10:50→18:50)
[2017-06-24] MEDS: GABAPENTIN 300 MG CAP PO SCH ×2 (13:00→17:13)
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
[2017-06-24] MEDS: PANTOPRAZOLE SOD 40 MG DELAYED RELEASE TAB PO SCH (15:00)
[2017-06-24] MEDS ORDERED: MIDAZOLAM HCL 2 MG/2 ML VIAL ONE (15:26)
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
[2017-06-24] MEDS: BACITRACIN TOP OINT 15 GM TUBE TOP SCH (20:37)
[2017-06-24] MEDS: HEPARIN SODIUM - SQ 10,000 UNITS/ML VIAL SQ SCH (20:38)
[2017-06-24] MEDS: PRAVASTATIN SOD 20 MG TAB PO SCH (20:38)
[2017-06-25] VITALS (11 sets, daily range): BP systolic 130–169; BP diastolic 63–74; PULSE 65–102; RESP 14–21; TEMP 97.7–98.6; O2SAT 93–98
[2017-06-25] MEDS: MORPHINE SULFATE 2 MG/ML SYRINGE IV PRN ×3 (01:08→09:58)
[2017-06-25] MEDS: LACTATED RINGER'S 1000 ML INJ 1,000 ML IV SCH ×2 (02:00→12:37)
[2017-06-25] MEDS: MAGNESIUM HYDROXIDE SUSP 30 ML CUP PO SCH ×2 (03:00→14:09)
[2017-06-25] MEDS: CHLORHEXIDINE GLUCONATE 2 % 1 PACK (2 CLOTHS) TOP SCH (04:00)
[2017-06-25 04:13] LABS: AUTOMATED NEUTROPHIL # 6.6 TH/MM3 (1.8-7.7); BASOPHIL # 0.1 TH/MM3 (0-0.2); BASOPHIL % 0.9 % (0.0-2.0); EOSINOPHIL # 0.1 TH/MM3 (0-0.4); EOSINOPHIL % 1.3 % (0.0-4.0); HEMATOCRIT 29.4 % (35.0-46.0); HEMOGLOBIN 9.9 GM/DL (11.6-15.3); LYMPH % 19.2 % (9.0-44.0); LYMPHOCYTE # 1.8 TH/MM3 (1.0-4.8); MEAN CELL VOLUME 89.5 FL (80.0-100.0); MEAN CORPUSCULAR HEMOGLOBIN 30.1 PG (27.0-34.0); MEAN CORPUSCULAR HGB CONC 33.7 % (32.0-36.0); MEAN PLATELET VOLUME 8.3 FL (7.0-11.0); MONO % 7.7 % (0.0-8.0); MONOCYTE # 0.7 TH/MM3 (0-0.9); NEUT % 70.9 % (16.0-70.0); PLATELET COUNT 209 TH/MM3 (150-450); RED BLOOD COUNT 3.28 MIL/MM3 (4.00-5.30); RED CELL DISTRIBUTION WIDTH 13.6 % (11.6-17.2); WHITE BLOOD COUNT 9.3 TH/MM3 (4.0-11.0)
[2017-06-25] MEDS: ACETAMINOPHEN 1000 MG/100 ML 100 ML IV SCH ×4 (04:22→21:19)
[2017-06-25 04:29] LABS: ALBUMIN 2.8 GM/DL (3.4-5.0); ALT (GPT) 54 U/L (10-53); AST (GOT) 35 U/L (15-37); CALCIUM 7.7 MG/DL (8.5-10.1); CHLORIDE 115 MEQ/L (98-107); CREATININE 0.44 MG/DL (0.50-1.00); GLOMERULAR FILTRATION RATE 138 ML/MIN (>89); GLUCOSE,RANDOM 107 MG/DL (74-106); SODIUM (NA) 147 MEQ/L (136-145)
[2017-06-25 04:31] LABS: ALKALINE PHOSPHATASE 78 U/L (45-117); TOTAL BILIRUBIN ADULT 0.7 MG/DL (0.2-1.0); TOTAL PROTEIN 6.5 GM/DL (6.4-8.2)
[2017-06-25 04:39] LABS: BLOOD UREA NITROGEN 22 MG/DL (7-18)
--- NOTE | 2017-06-25 05:24 | RADRPT ---
EXAM DATE/TIME: 06/25/2017 04:03 [facility] COMPARISON: CHEST SINGLE AP, June 24, 2017, 4:08. INDICATIONS : Shortness of breath MEDICAL HISTORY : Hypertension SURGICAL HISTORY : CABG. ENCOUNTER: Subsequent ACUITY: 4 - 6 days PAIN SCORE: Non-responsive. LOCATION: Bilateral chest FINDINGS: Bibasilar consolidation and small effusions again noted, not significantly changed. No pneumothorax. Heart size stable, within normal limits. Patient has had previous median sternotomy. CONCLUSION: No significant change bibasilar consolidation and small effusions. Russell Johnson MD on June 25, 2017 at 5:22 Board Certified Radiologist. This report was verified electronically.
[2017-06-25] MEDS: METHOCARBAMOL 500 MG TAB PO SCH (05:34)
[2017-06-25] MEDS: niCARdipine INJ 25 MG in SODIUM CHLOR 0.9% 250 ML INJ 240 ML IV PRN ×2 (06:52→18:04)
[2017-06-25] MEDS: CARVEDILOL 6.25 MG TAB PO SCH ×2 (08:01→20:04)
[2017-06-25] MEDS: DOCUSATE SODIUM 50 MG/SENNA 8.6 MG TAB PO SCH ×2 (08:01→20:04)
[2017-06-25] MEDS: GABAPENTIN 300 MG CAP PO SCH ×3 (08:01→18:03)
[2017-06-25] MEDS: LACTULOSE SYRUP 20 GM/30 ML CUP PO SCH (08:01)
[2017-06-25] MEDS: LOSARTAN 50 MG TAB PO SCH (08:01)
[2017-06-25] MEDS: SODIUM CHLORIDE 0.9% FLUSH 10 ML FLUSH IV FLUSH SCH ×2 (09:00→20:04)
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
[2017-06-25] MEDS: levETIRAcetam INJ 500 MG in SODIUM CHLORIDE 0.9% INJ 100 ML IV SCH ×2 (09:24→20:04)
[2017-06-25] MEDS: REMOVE OLD LIDOCAINE PATCH T-DERMAL SCH (09:25)
[2017-06-25] MEDS: LIDOCAINE HCL 5% PATCH T-DERMAL SCH ×2 (09:25)
[2017-06-25] MEDS: HEPARIN SODIUM - SQ 10,000 UNITS/ML VIAL SQ SCH ×2 (09:25→20:05)
[2017-06-25] MEDS: BACITRACIN TOP OINT 15 GM TUBE TOP SCH ×2 (09:26→20:05)
[2017-06-25] MEDS: METHOCARBAMOL INJ 1,000 MG in SODIUM CHLOR 0.9% 250 ML INJ 240 ML IV SCH ×2 (10:51→18:03)
[2017-06-25] MEDS: BISACODYL 10 MG SUPP RECTAL SCH (11:12)
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
[2017-06-25] MEDS: PANTOPRAZOLE SOD 40 MG DELAYED RELEASE TAB PO SCH (15:45)
[2017-06-25] MEDS: RESP: ALBUTEROL 2.5 MG/IPRATROPIUM 0.5 MG NEB (PRN) NEB (16:12)
--- NOTE | 2017-06-25 18:16 | RADRPT ---
EXAM DATE/TIME: 06/24/2017 15:49 [facility] COMPARISON: No previous studies available for comparison. INDICATIONS : Right hemothorax. Evaluate for possible chest tube placement. RADIATION DOSE: 27.49 CTDIvol (mGy) MEDICAL HISTORY : Hypertension. SURGICAL HISTORY : Hysterectomy. Cholecystectomy. ENCOUNTER: Initial ACUITY: 1 day PAIN SCALE: Non-responsive LOCATION: Right chest TECHNIQUE: Volumetric scanning of the chest was performed. Using automated exposure control and adjustment of t he mA and/or kV according to patient size, radiation dose was kept as low as reasonably achievable to obtain optimal diagnostic quality images. DICOM format image data is available electronically for r eview and comparison. Follow-up recommendations for detected pulmonary nodules are based at a minimum on nodule size and pa tient risk factors according to Fleischner Society Guidelines. FINDINGS: LUNGS: There moderate consolidative changes in the lungs bilaterally associated with relatively small effusi ons. PLEURAE: Small bilateral effusions. MEDIASTINUM: The heart and great vessels demonstrate no acute abnormality. There is no mediastinal or hilar lymph adenopathy. AXILLAE: Within normal limits. No lymphadenopathy. MUSCULOSKELETAL: Within normal limits for patient age. MISCELLANEOUS: The visualized upper abdominal organs demonstrate no acute abnormality. CONCLUSION: Effusions are relatively small. Most of the parenchymal opacity is atelectasis. Drainage was not perf ormed. Russell Ceron MD on June 25, 2017 at 18:12 Board Certified Radiologist. This report was verified electronically.
[2017-06-25] MEDS: PRAVASTATIN SOD 20 MG TAB PO SCH (20:04)
[2017-06-26] VITALS (9 sets, daily range): BP systolic 148–180; BP diastolic 67–105; PULSE 64–81; RESP 13–28; TEMP 98–98.6; O2SAT 94–100
[2017-06-26] MEDS: MAGNESIUM HYDROXIDE SUSP 30 ML CUP PO SCH ×3 (02:37→21:34)
[2017-06-26] MEDS: METHOCARBAMOL INJ 1,000 MG in SODIUM CHLOR 0.9% 250 ML INJ 240 ML IV SCH ×2 (02:37→12:02)
[2017-06-26] MEDS: ACETAMINOPHEN 1000 MG/100 ML 100 ML IV SCH ×3 (03:46→21:33)
[2017-06-26] MEDS: CHLORHEXIDINE GLUCONATE 2 % 1 PACK (2 CLOTHS) TOP SCH (03:46)
--- NOTE | 2017-06-26 04:12 | RADRPT ---
EXAM DATE/TIME: 06/26/2017 03:17 [facility] COMPARISON: CHEST SINGLE AP, June 25, 2017, 4:03. INDICATIONS : Pulmonary contusion. MEDICAL HISTORY : Hypertension. SURGICAL HISTORY : CABG. ENCOUNTER: Subsequent ACUITY: 1 week PAIN SCORE: 0/10 LOCATION: Bilateral chest FINDINGS: Single portable frontal view of the chest shows no interval change. Small bilateral pleural effusions and bibasilar infiltrates again seen. Heart is normal in size. Median sternotomy wires. CONCLUSION: Unchanged bilateral pleural effusions and bibasilar infiltrates. Hossein Lundy Jr., MD on June 26, 2017 at 4:10 Board Certified Radiologist. This report was verified electronically.
[2017-06-26 04:47] LABS: AUTOMATED NEUTROPHIL # 6.1 TH/MM3 (1.8-7.7); BASOPHIL # 0.1 TH/MM3 (0-0.2); BASOPHIL % 0.7 % (0.0-2.0); EOSINOPHIL # 0.1 TH/MM3 (0-0.4); EOSINOPHIL % 1.1 % (0.0-4.0); HEMATOCRIT 26.2 % (35.0-46.0); LYMPH % 18.7 % (9.0-44.0); LYMPHOCYTE # 1.6 TH/MM3 (1.0-4.8); MEAN CELL VOLUME 88.5 FL (80.0-100.0); MEAN CORPUSCULAR HEMOGLOBIN 30.4 PG (27.0-34.0); MEAN CORPUSCULAR HGB CONC 34.3 % (32.0-36.0); MEAN PLATELET VOLUME 8.2 FL (7.0-11.0); MONO % 9.2 % (0.0-8.0); MONOCYTE # 0.8 TH/MM3 (0-0.9); NEUT % 70.3 % (16.0-70.0); PLATELET COUNT 212 TH/MM3 (150-450); RED BLOOD COUNT 2.95 MIL/MM3 (4.00-5.30); RED CELL DISTRIBUTION WIDTH 13.2 % (11.6-17.2); WHITE BLOOD COUNT 8.7 TH/MM3 (4.0-11.0)
[2017-06-26 04:59] LABS: BICARBONATE 22.8 MEQ/L (21.0-32.0); CALCIUM 7.3 MG/DL (8.5-10.1); CREATININE 0.42 MG/DL (0.50-1.00)
[2017-06-26] MEDS: cloNIDine HCL 0.1 MG TAB PO PRN (05:18)
[2017-06-26 05:34] LABS: TOTAL PROTEIN 5.8 GM/DL (6.4-8.2)
[2017-06-26] MEDS ORDERED: POTASSIUM CHLORIDE 10 MEQ CAP PO ONE (06:15)
[2017-06-26] MEDS: CARVEDILOL 6.25 MG TAB PO SCH ×2 (08:40→21:33)
[2017-06-26] MEDS: LOSARTAN 50 MG TAB PO SCH (08:40)
[2017-06-26] MEDS: GABAPENTIN 300 MG CAP PO SCH ×3 (08:40→17:44)
[2017-06-26] MEDS: levETIRAcetam INJ 500 MG in SODIUM CHLORIDE 0.9% INJ 100 ML IV SCH (08:41)
[2017-06-26] MEDS: HEPARIN SODIUM - SQ 10,000 UNITS/ML VIAL SQ SCH ×2 (08:41→21:33)
[2017-06-26] MEDS: SODIUM CHLORIDE 0.9% FLUSH 10 ML FLUSH IV FLUSH SCH ×2 (08:41→21:00)
[2017-06-26] MEDS: LIDOCAINE HCL 5% PATCH T-DERMAL SCH ×2 (08:42→09:10)
[2017-06-26] MEDS: REMOVE OLD LIDOCAINE PATCH T-DERMAL SCH (08:43)
[2017-06-26] MEDS: BISACODYL 10 MG SUPP RECTAL SCH (08:44)
[2017-06-26] MEDS: LACTULOSE SYRUP 20 GM/30 ML CUP PO SCH (08:44)
[2017-06-26] MEDS: DOCUSATE SODIUM 50 MG/SENNA 8.6 MG TAB PO SCH ×2 (08:44→21:00)
[2017-06-26] MEDS: BACITRACIN TOP OINT 15 GM TUBE TOP SCH ×2 (08:44→21:00)
[2017-06-26 09:17] LABS: CORRECTED NUCLEATED RBC 1 /100 WBC (0-0); LYMPHOCYTES 16 % (9-44); MONOCYTES 7 % (0-8); MYELOCYTES 3 % (0-0); NEUTROPHIL # MANUAL DIFF 6.6 TH/MM3 (1.8-7.7); NUCLEATED RED BLOOD CELL 1 (0-0); POLYS (SEG NEUTROPHILS) 73 % (16-70)
[2017-06-26 09:18] LABS: OVALOCYTES 1+ (NORMAL)
[2017-06-26] MEDS: RESP: ALBUTEROL 2.5 MG/IPRATROPIUM 0.5 MG NEB (SCH) NEB ×3 (11:49→21:23)
[2017-06-26] MEDS: PANTOPRAZOLE SOD 40 MG DELAYED RELEASE TAB PO SCH (14:34)
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
[2017-06-26] MEDS: MORPHINE SULFATE 2 MG/ML SYRINGE IV PRN (19:07)
[2017-06-26] MEDS: METHOCARBAMOL 500 MG TAB PO SCH (21:33)
[2017-06-26] MEDS: PRAVASTATIN SOD 20 MG TAB PO SCH (21:33)
[2017-06-27] VITALS (10 sets, daily range): BP systolic 130–199; BP diastolic 59–84; PULSE 56–182; RESP 19–20; TEMP 96.4–98.2; O2SAT 72–96
[2017-06-27] MEDS: CHLORHEXIDINE GLUCONATE 2 % 1 PACK (2 CLOTHS) TOP SCH (00:36)
[2017-06-27] MEDS: ACETAMINOPHEN 1000 MG/100 ML 100 ML IV SCH ×4 (03:19→21:43)
[2017-06-27] MEDS: METHOCARBAMOL 500 MG TAB PO SCH ×3 (04:35→21:43)
[2017-06-27] MEDS: MORPHINE SULFATE 2 MG/ML SYRINGE IV PRN ×3 (04:35→17:11)
[2017-06-27] MEDS: cloNIDine HCL 0.1 MG TAB PO PRN ×3 (04:35→18:43)
[2017-06-27 06:25] LABS: BICARBONATE 24.5 MEQ/L (21.0-32.0); CALCIUM 7.7 MG/DL (8.5-10.1); CREATININE 0.49 MG/DL (0.50-1.00)
[2017-06-27] MEDS: RESP: ALBUTEROL 2.5 MG/IPRATROPIUM 0.5 MG NEB (SCH) NEB ×3 (08:44→20:06)
[2017-06-27] MEDS: DOCUSATE SODIUM 50 MG/SENNA 8.6 MG TAB PO SCH ×2 (09:00→21:42)
[2017-06-27] MEDS: LACTULOSE SYRUP 20 GM/30 ML CUP PO SCH (09:00)
[2017-06-27] MEDS: BISACODYL 10 MG SUPP RECTAL SCH (09:00)
[2017-06-27] MEDS: LIDOCAINE HCL 5% PATCH T-DERMAL SCH (09:00)
[2017-06-27] MEDS: BACITRACIN TOP OINT 15 GM TUBE TOP SCH ×2 (09:00→21:43)
[2017-06-27] MEDS: SODIUM CHLORIDE 0.9% FLUSH 10 ML FLUSH IV FLUSH SCH ×2 (10:26→21:44)
[2017-06-27] MEDS: HEPARIN SODIUM - SQ 10,000 UNITS/ML VIAL SQ SCH ×2 (10:27→21:43)
[2017-06-27] MEDS: GABAPENTIN 300 MG CAP PO SCH ×3 (10:27→17:11)
[2017-06-27] MEDS: CARVEDILOL 6.25 MG TAB PO SCH ×2 (10:27→21:42)
[2017-06-27] MEDS: LOSARTAN 50 MG TAB PO SCH (10:27)
[2017-06-27 11:10] LABS: AUTOMATED NEUTROPHIL # 6.5 TH/MM3 (1.8-7.7); BASOPHIL % 0.5 % (0.0-2.0); EOSINOPHIL # 0.2 TH/MM3 (0-0.4); EOSINOPHIL % 1.7 % (0.0-4.0); HEMATOCRIT 28.6 % (35.0-46.0); HEMOGLOBIN 9.7 GM/DL (11.6-15.3); LYMPH % 18.5 % (9.0-44.0); LYMPHOCYTE # 1.7 TH/MM3 (1.0-4.8); MEAN CELL VOLUME 89.3 FL (80.0-100.0); MEAN CORPUSCULAR HEMOGLOBIN 30.4 PG (27.0-34.0); MEAN CORPUSCULAR HGB CONC 34.1 % (32.0-36.0); MEAN PLATELET VOLUME 8.1 FL (7.0-11.0); MONO % 8.1 % (0.0-8.0); MONOCYTE # 0.7 TH/MM3 (0-0.9); NEUT % 71.2 % (16.0-70.0); PLATELET COUNT 248 TH/MM3 (150-450); RED CELL DISTRIBUTION WIDTH 13.7 % (11.6-17.2); WHITE BLOOD COUNT 9.1 TH/MM3 (4.0-11.0)
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
[2017-06-27] MEDS: MAGNESIUM HYDROXIDE SUSP 30 ML CUP PO SCH (15:00)
[2017-06-27] MEDS: ENALAPRILAT 2.5 MG/2 ML VIAL IV PUSH PRN (17:12)
[2017-06-27] MEDS: PANTOPRAZOLE SOD 40 MG DELAYED RELEASE TAB PO SCH (17:12)
[2017-06-27] MEDS: PRAVASTATIN SOD 20 MG TAB PO SCH (21:42)
[2017-06-28] VITALS (8 sets, daily range): BP systolic 178–203; BP diastolic 76–85; PULSE 72–80; RESP 18–22; TEMP 96.2–98.5; O2SAT 94–96
[2017-06-28] MEDS: MAGNESIUM HYDROXIDE SUSP 30 ML CUP PO SCH ×2 (03:00→15:00)
[2017-06-28] MEDS: RESP: ALBUTEROL 2.5 MG/IPRATROPIUM 0.5 MG NEB (SCH) NEB ×4 (03:33→20:15)
[2017-06-28] MEDS: ACETAMINOPHEN 1000 MG/100 ML 100 ML IV SCH ×4 (03:35→22:29)
[2017-06-28] MEDS: cloNIDine HCL 0.1 MG TAB PO PRN ×2 (03:35→09:06)
[2017-06-28] MEDS: CHLORHEXIDINE GLUCONATE 2 % 1 PACK (2 CLOTHS) TOP SCH (03:36)
[2017-06-28] MEDS: METHOCARBAMOL 500 MG TAB PO SCH ×3 (04:58→22:27)
[2017-06-28] MEDS: ENALAPRILAT 2.5 MG/2 ML VIAL IV PUSH PRN (05:04)
[2017-06-28] MEDS: BISACODYL 10 MG SUPP RECTAL SCH (09:00)
[2017-06-28] MEDS: LACTULOSE SYRUP 20 GM/30 ML CUP PO SCH (09:06)
[2017-06-28] MEDS: GABAPENTIN 300 MG CAP PO SCH ×3 (09:06→17:44)
[2017-06-28] MEDS: LOSARTAN 50 MG TAB PO SCH (09:06)
[2017-06-28] MEDS: CARVEDILOL 6.25 MG TAB PO SCH ×2 (09:06→22:27)
[2017-06-28] MEDS: SODIUM CHLORIDE 0.9% FLUSH 10 ML FLUSH IV FLUSH SCH ×2 (09:07→22:30)
[2017-06-28] MEDS: HEPARIN SODIUM - SQ 10,000 UNITS/ML VIAL SQ SCH ×2 (09:09→22:26)
[2017-06-28] MEDS: LIDOCAINE HCL 5% PATCH T-DERMAL SCH (09:09)
[2017-06-28] MEDS: BACITRACIN TOP OINT 15 GM TUBE TOP SCH ×2 (09:10→21:00)
[2017-06-28] MEDS: DOCUSATE SODIUM 50 MG/SENNA 8.6 MG TAB PO SCH ×2 (09:15→21:00)
[2017-06-28] MEDS ORDERED: hydrALAZINE HCL 20 MG/ML VIAL IV PUSH PRN (12:00)
[2017-06-28] MEDS: LACTATED RINGER'S 1000 ML INJ 1,000 ML IV SCH (12:19)
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
[2017-06-28] MEDS: PANTOPRAZOLE SOD 40 MG DELAYED RELEASE TAB PO SCH (17:44)
[2017-06-28] MEDS: PRAVASTATIN SOD 20 MG TAB PO SCH (22:27)
[2017-06-29] VITALS (9 sets, daily range): BP systolic 137–207; BP diastolic 63–89; PULSE 78–98; RESP 20–24; TEMP 97.1–98.4; O2SAT 90–96
[2017-06-29] MEDS: MAGNESIUM HYDROXIDE SUSP 30 ML CUP PO SCH ×2 (03:00→13:52)
[2017-06-29] MEDS: RESP: ALBUTEROL 2.5 MG/IPRATROPIUM 0.5 MG NEB (SCH) NEB ×4 (03:08→20:58)
[2017-06-29] MEDS: ACETAMINOPHEN 1000 MG/100 ML 100 ML IV SCH ×2 (03:43→09:22)
[2017-06-29] MEDS: CHLORHEXIDINE GLUCONATE 2 % 1 PACK (2 CLOTHS) TOP SCH (03:43)
--- NOTE | 2017-06-29 05:29 | RADRPT ---
EXAM DATE/TIME: 06/29/2017 04:50 [facility] COMPARISON: CHEST SINGLE AP, June 26, 2017, 3:17. INDICATIONS : Short of breath. MEDICAL HISTORY : Hypertension. SURGICAL HISTORY : CABG. ENCOUNTER: Subsequent ACUITY: 1 week PAIN SCORE: 0/10 LOCATION: Bilateral chest FINDINGS: A single view of the chest demonstrates postoperative median sternotomy. Bilateral mostly basilar air space disease and small effusions. Heart size enlarged. CONCLUSION: 1. Bilateral mostly basilar airspace disease with small effusions. Stable upper right rib fractures. Findings similar to June 26. Hugo Sood MD on June 29, 2017 at 5:26 Board Certified Radiologist. This report was verified electronically.
[2017-06-29] MEDS: METHOCARBAMOL 500 MG TAB PO SCH ×3 (07:27→22:35)
[2017-06-29] MEDS: LACTATED RINGER'S 1000 ML INJ 1,000 ML IV SCH (08:00)
[2017-06-29] MEDS: BACITRACIN TOP OINT 15 GM TUBE TOP SCH ×2 (09:00→21:00)
[2017-06-29] MEDS: DOCUSATE SODIUM 50 MG/SENNA 8.6 MG TAB PO SCH ×2 (09:00→22:34)
[2017-06-29] MEDS: MORPHINE SULFATE 2 MG/ML SYRINGE IV PRN (09:20)
[2017-06-29] MEDS: GABAPENTIN 300 MG CAP PO SCH ×3 (09:21→17:06)
[2017-06-29] MEDS: LOSARTAN 50 MG TAB PO SCH (09:21)
[2017-06-29] MEDS: HEPARIN SODIUM - SQ 10,000 UNITS/ML VIAL SQ SCH ×2 (09:21→22:34)
[2017-06-29] MEDS: CARVEDILOL 6.25 MG TAB PO SCH ×2 (09:21→22:35)
[2017-06-29] MEDS: SODIUM CHLORIDE 0.9% FLUSH 10 ML FLUSH IV FLUSH SCH ×2 (09:22→21:00)
[2017-06-29] MEDS: LIDOCAINE HCL 5% PATCH T-DERMAL SCH (09:22)
[2017-06-29] MEDS ORDERED: METOPROLOL SUCCINATE 50 MG EXTENDED RELEASE TAB PO SCH (10:00)
[2017-06-29] MEDS ORDERED: NEUR300C PO (10:38)
[2017-06-29] MEDS ORDERED: LIDO1ADH4 T-DERMAL (10:38)
[2017-06-29] MEDS ORDERED: METO1TAB9 PO (10:38)
[2017-06-29] MEDS ORDERED: METH500T3 PO (10:38)
[2017-06-29] MEDS ORDERED: MAGN30S PO (10:38)
[2017-06-29] MEDS ORDERED: OXYC-392 PO (10:38)
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
[2017-06-29] MEDS: PANTOPRAZOLE SOD 40 MG DELAYED RELEASE TAB PO SCH (15:07)
[2017-06-29] MEDS: cloNIDine HCL 0.1 MG TAB PO PRN (15:36)
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
[2017-06-29] MEDS ORDERED: NIFEdipine 30 MG SUSTAINED RELEASE TAB PO ONE (16:45)
[2017-06-29] MEDS: PRAVASTATIN SOD 20 MG TAB PO SCH (22:34)
[2017-06-30] VITALS: BP 190/74; PULSE 96; RESP 20; TEMP 98.6; O2SAT 94
[2017-06-30] MEDS: MAGNESIUM HYDROXIDE SUSP 30 ML CUP PO SCH (03:00)
[2017-06-30] MEDS: RESP: ALBUTEROL 2.5 MG/IPRATROPIUM 0.5 MG NEB (SCH) NEB (03:23)
[2017-06-30 04:00] VITALS: BP 128/65; PULSE 91; RESP 20; TEMP 98; O2SAT 94
[2017-06-30] MEDS: CHLORHEXIDINE GLUCONATE 2 % 1 PACK (2 CLOTHS) TOP SCH (04:00)
[2017-06-30] MEDS: METHOCARBAMOL 500 MG TAB PO SCH (06:17)
[2017-06-30 08:00] VITALS: BP 188/80; PULSE 94; RESP 20; TEMP 96.8; O2SAT 93
[2017-06-30] MEDS ORDERED: NIFEdipine 30 MG SUSTAINED RELEASE TAB PO SCH (09:00)
[2017-06-30] MEDS: DOCUSATE SODIUM 50 MG/SENNA 8.6 MG TAB PO SCH (09:24)
[2017-06-30] MEDS: LOSARTAN 50 MG TAB PO SCH (09:25)
[2017-06-30] MEDS: CARVEDILOL 6.25 MG TAB PO SCH (09:25)
[2017-06-30] MEDS: GABAPENTIN 300 MG CAP PO SCH (09:25)
[2017-06-30] MEDS: HEPARIN SODIUM - SQ 10,000 UNITS/ML VIAL SQ SCH (09:26)
[2017-06-30] MEDS: LIDOCAINE HCL 5% PATCH T-DERMAL SCH (09:26)
[2017-06-30 10:17] VITALS: O2SAT 99
[2017-06-30] MEDS: RESP: ALBUTEROL 2.5 MG/IPRATROPIUM 0.5 MG NEB (PRN) NEB (10:18)
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
[2017-06-30 11:10] VITALS: BP 164/71; PULSE 89; RESP 20; TEMP 98.7; O2SAT 94
== END 2017-06-30 11:46 | DRG 964 ==
LOC: NEPC 10:11 → NEDA 12:36 → N03A 14:15 → N05B 06-21 08:10 → N03B 06-21 21:08 → N03A 06-23 12:45 → N03B 06-26 22:28
PROVIDERS: ADMIT Surgery; ATTEND Surgery
PROC: 0HQ1XZZ Repair Face Skin, External Approach (ICD-10-PCS; principal; 2017-06-19)
PROC: 0HQ3XZZ Repair Left Ear Skin, External Approach (ICD-10-PCS; 2017-06-19)
PROC: 5A09357 Assistance with Respiratory Ventilation, Less than 24 Consecutive Hours, Continuous Positive Airway Pressure (ICD-10-PCS; 2017-06-24)
DX: S06.5X0A Traumatic subdural hemorrhage without loss of consciousness, initial encounter (principal); S22.43XA Multiple fractures of ribs, bilateral, initial encounter for closed fracture; S27.0XXA Traumatic pneumothorax, initial encounter; S06.6X0A Traumatic subarachnoid hemorrhage without loss of consciousness, initial encounter; S22.040A Wedge compression fracture of fourth thoracic vertebra, initial encounter for closed fracture; R13.10 Dysphagia, unspecified; S27.322A Contusion of lung, bilateral, initial encounter; S22.050A Wedge compression fracture of T5-T6 vertebra, initial encounter for closed fracture; S22.048A Other fracture of fourth thoracic vertebra, initial encounter for closed fracture; S22.058A Other fracture of T5-T6 vertebra, initial encounter for closed fracture; J98.11 Atelectasis; S02.0XXA Fracture of vault of skull, initial encounter for closed fracture; S01.412A Laceration without foreign body of left cheek and temporomandibular area, initial encounter; S42.031A Displaced fracture of lateral end of right clavicle, initial encounter for closed fracture; S01.81XA Laceration without foreign body of other part of head, initial encounter; V49.59XA Passenger injured in collision with other motor vehicles in traffic accident, initial encounter; Y92.410 Unspecified street and highway as the place of occurrence of the external cause; Y93.9 Activity, unspecified; Y99.9 Unspecified external cause status; E78.5 Hyperlipidemia, unspecified; I10 Essential (primary) hypertension; J44.9 Chronic obstructive pulmonary disease, unspecified; M81.0 Age-related osteoporosis without current pathological fracture; S01.312A Laceration without foreign body of left ear, initial encounter
CPT/HCPCS: 12002; 12014; 36600; 70450; 71045; 71250; 71260; 72125; 72128; 72146; 72170; 73000; 76937; 80048; 80053; 82805; 84155; 85007; 85025; 85027; 85610; 85730; 86850; 86900; 86901; 87641; 90471; 90714; 93005; 93306; 94002; 94003; 94150; 94640; 94664; 94667; 94668; 96374; 96375; 99211; G0463; J0131; J0360; J1644; J1953; J2250; J2270; J2310; J2405; J2800; J3010; J7030; J7050; J7120; L0150; L0200; L0484; Q9967